=== PATIENT | female | born 1985 | race Caucasian/White ===

== ENCOUNTER 2020-09-20 19:02 | Outpatient (CLI) | payer OTHER ==
[~2020-09-20 19:02] MED LIST: IBUPROFEN600 MG PO; PRENATAL VITAM1 EAC8 PO
== END 2020-09-20 21:10 | disposition home or self-care (01) ==
LOC: GENOP 19:02
DX: O42.912 Preterm premature rupture of membranes, unspecified as to length of time between rupture and onset of labor, second trimester (principal); Z3A.27 27 weeks gestation of pregnancy
CPT/HCPCS: 82731; 83518; G0463

== ENCOUNTER 2020-11-24 15:57 | Outpatient (CLI) | payer OTHER | END 2020-11-24 18:40 | disposition home or self-care (01) | LOC: GENOP 15:57 | DX: O99.891 Other specified diseases and conditions complicating pregnancy (principal); R10.9 Unspecified abdominal pain; M54.9 Dorsalgia, unspecified; Z3A.35 35 weeks gestation of pregnancy | CPT/HCPCS: G0463 ==

== ENCOUNTER → 2020-12-02 | Outpatient (CLI) | payer OTHER ==
[~2020-12-02] MED LIST changes: +AUGMENTIN 875-1 EACH PO; +CEPHALEXIN250 MG PO; +COLACE 100MG C100 MG PO
== END ==
LOC: GENOP 16:24
DX: O36.8130 Decreased fetal movements, third trimester, not applicable or unspecified (principal); Z3A.36 36 weeks gestation of pregnancy
CPT/HCPCS: 59025

== ENCOUNTER → 2020-12-07 | Outpatient (CLI) | payer OTHER | LOC: GENOP 15:33 | DX: O99.891 Other specified diseases and conditions complicating pregnancy (principal); R10.9 Unspecified abdominal pain; Z3A.37 37 weeks gestation of pregnancy | CPT/HCPCS: 81001; G0463 ==

== ENCOUNTER 2020-12-10 22:33 | Inpatient (IN) | payer OTHER ==
[~2020-12-10 22:33] MED LIST changes: -AUGMENTIN 875-1 EACH PO; -CEPHALEXIN250 MG PO; -COLACE 100MG C100 MG PO
[2020-12-11 03:38] LABS: HEMOGLOBIN 11.2 gm/dl (12.3-15.3); RED BLOOD COUNT 3.7 M/UL (4.00-5.10); WHITE BLOOD COUNT 7.7 K/UL (4.5-11.0)
[2020-12-11] MEDS ORDERED: IBUPROFEN600 MG PO (12:27)
[2020-12-11] MEDS ORDERED: COLACE 100MG C100 MG PO (12:27)
[2020-12-12 03:41] LABS: HEMOGLOBIN 10.6 gm/dl (12.3-15.3)
== END 2020-12-12 14:46 | disposition home or self-care (01) | DRG 807 ==
LOC: GENOP 22:33 → OB 12-11 03:00
PROVIDERS: Obstetrics & Gynecology; ADMIT Obstetrics & Gynecology
PROC: 10E0XZZ Delivery of Products of Conception, External Approach (ICD-10-PCS; principal; 2020-12-12)
PROC: 10907ZC Drainage of Amniotic Fluid, Therapeutic from Products of Conception, Via Natural or Artificial Opening (ICD-10-PCS; 2020-12-12)
PROC: 0HQ9XZZ Repair Perineum Skin, External Approach (ICD-10-PCS; 2020-12-12)
PROC: 4A1HXFZ Monitoring of Products of Conception, Cardiac Rhythm, External Approach (ICD-10-PCS; 2020-12-12)
DX: O13.4 Gestational [pregnancy-induced] hypertension without significant proteinuria, complicating childbirth (principal); Z37.0 Single live birth; Z3A.38 38 weeks gestation of pregnancy; Z20.822 Contact with and (suspected) exposure to COVID-19; J30.2 Other seasonal allergic rhinitis; O99.52 Diseases of the respiratory system complicating childbirth; O70.0 First degree perineal laceration during delivery; Z90.89 Acquired absence of other organs; Z86.69 Personal history of other diseases of the nervous system and sense organs
CPT/HCPCS: 36415; 51702; 82800; 85014; 85018; 85025; J0595; J2590; J2795; J3430; J7120; U0002

== ENCOUNTER 2021-01-01 21:52 | Inpatient (IN) | payer OTHER ==
[~2021-01-01] VITALS: Ht 167.6 cm; Wt 98.0 kg
[~2021-01-01 21:52] MED LIST changes: +COLACE 100MG C100 MG PO
[2021-01-01 22:36] LABS: HEMOGLOBIN 14.2 gm/dl (12.3-15.3); RED BLOOD COUNT 4.71 M/UL (4.00-5.10); WHITE BLOOD COUNT 17.3 K/UL (4.5-11.0)
[2021-01-01 22:54] LABS: BUN/CREATININE RATIO 8 (0-10)
[2021-01-02 08:01] LABS: HEMOGLOBIN 11.5 gm/dl (12.3-15.3); RED BLOOD COUNT 3.91 M/UL (4.00-5.10); WHITE BLOOD COUNT 12.1 K/UL (4.5-11.0)
[2021-01-02 09:04] LABS: BUN/CREATININE RATIO 7 (0-10)
[2021-01-02 09:43] LABS: ACINETOBACTER BAUMANNII Not Detected (Negative); CANDIDA ALBICANS Not Detected (Negative); CANDIDA KRUSEI Not Detected (Negative); CANDIDA TROPICALIS Not Detected (Negative); ENTEROCOCCUS Not Detected (Negative); ESCHERICHIA COLI Not Detected (Negative); HAEMOPHILUS INFLUENZAE Not Detected (Negative); KLEBSIELLA OXYTOCA Not Detected (Negative); KLEBSIELLA PNEUMONIAE Not Detected (Negative); KPC-CARBAPENEM-RESISTANCE GENE Not Detected (Negative); PROTEUS Not Detected (Negative); PSEUDOMONAS AERUGINOSA Not Detected (Negative); SERRATIA MARCESANS Not Detected (Negative); STAPHYLOCOCCUS Not Detected (Negative); STAPHYLOCOCCUS AUREUS Not Detected (Negative); STREP AGALACTIAE (GROUP B) Not Detected (Negative); STREP PYOGENES (GROUP A) Not Detected (Negative); mecA (METHICILLIN RESIST GENE Not Detected (Negative); vanA/B (VANCOMYCIN RESIST GENE Not Detected (Negative)
[2021-01-02 10:55] LABS: STREPTOCOCCUS DETECTED (Negative)
[2021-01-03 04:07] LABS: HEMOGLOBIN 11.9 gm/dl (12.3-15.3); RED BLOOD COUNT 3.99 M/UL (4.00-5.10); WHITE BLOOD COUNT 10.1 K/UL (4.5-11.0)
[2021-01-03 04:39] LABS: BUN/CREATININE RATIO 14 (0-10)
[2021-01-04 06:29] LABS: BUN/CREATININE RATIO 19 (0-10)
[2021-01-05 04:39] LABS: BUN/CREATININE RATIO 14 (0-10)
[2021-01-05] MEDS ORDERED: AUGMENTIN 875-1 EACH PO (14:44)
== END 2021-01-05 15:32 | disposition home or self-care (01) | DRG 769 ==
LOC: ER1 21:52 → CDU 23:59 → MED SURG 4 23:59
PROVIDERS: Family Medicine; Internal Medicine; Surgery; ADMIT Internal Medicine
PROC: 0FT44ZZ Resection of Gallbladder, Percutaneous Endoscopic Approach (ICD-10-PCS; principal; 2021-01-02 11:27)
DX: O85 Puerperal sepsis (principal); K81.0 Acute cholecystitis; N10 Acute pyelonephritis; M62.82 Rhabdomyolysis; O24.93 Unspecified diabetes mellitus in the puerperium; Z20.822 Contact with and (suspected) exposure to COVID-19; E66.9 Obesity, unspecified; D64.9 Anemia, unspecified; J45.909 Unspecified asthma, uncomplicated; Z68.30 Body mass index [BMI] 30.0-30.9, adult; O99.63 Diseases of the digestive system complicating the puerperium; O26.63 Liver and biliary tract disorders in the puerperium; K83.9 Disease of biliary tract, unspecified; O99.215 Obesity complicating the puerperium; O72.3 Postpartum coagulation defects; O90.81 Anemia of the puerperium; D69.6 Thrombocytopenia, unspecified; O99.53 Diseases of the respiratory system complicating the puerperium; E11.65 Type 2 diabetes mellitus with hyperglycemia; Z83.79 Family history of other diseases of the digestive system
CPT/HCPCS: 0240U; 36415; 80048; 80053; 80202; 81001; 82550; 82553; 83036; 83605; 83690; 83874; 84439; 84443; 84484; 84703; 85025; 86140; 87040; 87077; 87086; 87150; 87186; 96374; 96375; 99285; C9113; G0378; J1650; J1885; J2250; J2270; J2405; J2543; J3010; J3370; J7030; J7070; J7120; Q9967

== ENCOUNTER 2021-01-23 19:27 | Emergency (ER) | payer OTHER ==
[~2021-01-23 19:27] MED LIST changes: +AUGMENTIN 875-1 EACH PO
== END 2021-01-23 22:00 | disposition home or self-care (01) ==
LOC: ER1 19:27
DX: S16.1XXA Strain of muscle, fascia and tendon at neck level, initial encounter (principal); R51.9 Headache, unspecified; J45.909 Unspecified asthma, uncomplicated; V49.40XA Driver injured in collision with unspecified motor vehicles in traffic accident, initial encounter; Y92.410 Unspecified street and highway as the place of occurrence of the external cause
CPT/HCPCS: 99283

== ENCOUNTER 2021-03-30 08:39 | Emergency (ER) | payer OTHER ==
[2021-03-30 09:52] LABS: HEMOGLOBIN 13.7 gm/dl (12.3-15.3); RED BLOOD COUNT 4.53 M/UL (4.00-5.10); WHITE BLOOD COUNT 6.9 K/UL (4.5-11.0)
[2021-03-30 10:16] LABS: BUN/CREATININE RATIO 19 (0-10)
[2021-03-30] MEDS ORDERED: CEPHALEXIN250 MG PO (12:37)
== END 2021-03-30 12:56 | disposition home or self-care (01) ==
LOC: ER1 08:39
PROVIDERS: Student in an Organized Health Care Education/Training Program
DX: R55 Syncope and collapse (principal); S09.90XA Unspecified injury of head, initial encounter; S40.012A Contusion of left shoulder, initial encounter; N39.0 Urinary tract infection, site not specified; J32.9 Chronic sinusitis, unspecified; Z90.49 Acquired absence of other specified parts of digestive tract; V49.40XA Driver injured in collision with unspecified motor vehicles in traffic accident, initial encounter; W22.11XA Striking against or struck by driver side automobile airbag, initial encounter; Y92.10 Unspecified residential institution as the place of occurrence of the external cause
CPT/HCPCS: 70450; 71045; 71260; 72125; 72128; 72131; 73030; 73060; 73080; 80053; 80307; 81001; 82550; 82553; 83605; 83874; 84484; 84702; 85025; 85610; 85730; 93005; 96374; 96375; 99285; G0480; J2270; J2405; Q9967

== ENCOUNTER 2021-04-14 10:58 | Emergency (ER) | payer OTHER ==
[~2021-04-14 10:58] MED LIST changes: +CEPHALEXIN250 MG PO
[2021-04-14] MEDS ORDERED: ANTIVERT 12.512.5 MG PO (14:13)
== END 2021-04-14 14:35 | disposition home or self-care (01) ==
LOC: ER1 10:58
DX: R51.9 Headache, unspecified (principal); R42 Dizziness and giddiness; M25.562 Pain in left knee; G89.29 Other chronic pain; J45.909 Unspecified asthma, uncomplicated; Z90.49 Acquired absence of other specified parts of digestive tract
CPT/HCPCS: 70450; 73562; 99284

== ENCOUNTER 2021-07-06 04:19 | Emergency (ER) | payer OTHER ==
[~2021-07-06 04:19] MED LIST changes: +ANTIVERT 12.512.5 MG PO
[2021-07-06] MEDS ORDERED: MACROBID 100 M100 M1 PO (05:39)
== END 2021-07-06 05:55 | disposition home or self-care (01) ==
LOC: ER1 04:19
DX: M54.50 Low back pain, unspecified (principal); N39.0 Urinary tract infection, site not specified
CPT/HCPCS: 72110; 81001; 96372; 99284; J1100; J1885

== ENCOUNTER 2022-01-05 05:49 | Emergency (ER) | payer OTHER ==
[~2022-01-05 05:49] MED LIST changes: +MACROBID 100 M100 M1 PO
== END 2022-01-05 08:09 | disposition home or self-care (01) ==
LOC: ER1 05:49
DX: O99.891 Other specified diseases and conditions complicating pregnancy (principal); M54.12 Radiculopathy, cervical region; Z3A.25 25 weeks gestation of pregnancy
CPT/HCPCS: 73030; 99283

== ENCOUNTER 2022-03-21 19:13 | Outpatient (CLI) | payer OTHER | END 2022-03-21 20:48 | disposition home or self-care (01) | LOC: GENOP 19:13 | DX: O99.891 Other specified diseases and conditions complicating pregnancy (principal); M54.50 Low back pain, unspecified; O47.03 False labor before 37 completed weeks of gestation, third trimester; Z3A.35 35 weeks gestation of pregnancy | CPT/HCPCS: 81001; G0463 ==

== ENCOUNTER 2022-04-05 05:24 | Inpatient (IN) | payer OTHER ==
[~2022-04-05] VITALS: Ht 167.6 cm; Wt 102.5 kg
[2022-04-05 06:28] LABS: HEMOGLOBIN 10.9 gm/dl (12.3-15.3); RED BLOOD COUNT 3.6 M/UL (4.00-5.10); WHITE BLOOD COUNT 7.7 K/UL (4.5-11.0)
[2022-04-05] MEDS ORDERED: IBUPROFEN600 MG PO (14:11)
[2022-04-05] MEDS ORDERED: DOCUSATE SODIU100 MG PO (14:11)
[2022-04-06 05:46] LABS: HEMOGLOBIN 11.1 gm/dl (12.3-15.3)
== END 2022-04-06 16:21 | disposition home or self-care (01) | DRG 807 ==
LOC: OB 05:24
PROVIDERS: Obstetrics & Gynecology; ADMIT Obstetrics & Gynecology
PROC: 10907ZC Drainage of Amniotic Fluid, Therapeutic from Products of Conception, Via Natural or Artificial Opening (ICD-10-PCS; principal; 2022-04-05)
PROC: 10E0XZZ Delivery of Products of Conception, External Approach (ICD-10-PCS; principal; 2022-04-05)
PROC: 10H07YZ Insertion of Other Device into Products of Conception, Via Natural or Artificial Opening (ICD-10-PCS; principal; 2022-04-05)
PROC: 3E033VJ Introduction of Other Hormone into Peripheral Vein, Percutaneous Approach (ICD-10-PCS; principal; 2022-04-05)
PROC: 10H073Z Insertion of Monitoring Electrode into Products of Conception, Via Natural or Artificial Opening (ICD-10-PCS; principal; 2022-04-05)
PROC: 4A1HXCZ Monitoring of Products of Conception, Cardiac Rate, External Approach (ICD-10-PCS; principal; 2022-04-05)
PROC: 3E0234Z Introduction of Serum, Toxoid and Vaccine into Muscle, Percutaneous Approach (ICD-10-PCS; 2022-04-05)
DX: O99.824 Streptococcus B carrier state complicating childbirth (principal); Z37.0 Single live birth; Z20.822 Contact with and (suspected) exposure to COVID-19; Z3A.37 37 weeks gestation of pregnancy; Z90.49 Acquired absence of other specified parts of digestive tract; Z83.3 Family history of diabetes mellitus; Z82.49 Family history of ischemic heart disease and other diseases of the circulatory system; Z98.890 Other specified postprocedural states; Z23 Encounter for immunization
CPT/HCPCS: 36415; 82800; 85014; 85018; 85025; 90715; J2405; J2590